=== PATIENT | male | born 1930 | race Caucasian/White ===

== ENCOUNTER → 2016-09-07 | Outpatient (CLI) | payer MEDICARE, OTHER ==
[~2016-09-07] MED LIST: ACET325T33 PO; ADV25050 INHALATION; ALBU8.5H3 INH; ALEN70TA30 PO; ASPI81TA3 PO; ATOR10TA65 PO; BARIUM SULFATE 135 ML (E-Z HD) PO ONE; CITA20TA11 PO; CLOP75TA27 PO; ERGO500014 PO; FER325 PO; FINA5TAB4 PO; FURO20TA3 PO; GABA300C16 PO; HYDR-762 PO; IPRA3AMP HHN; KENC1 TOP; MECL-77 PO; MELO7.5O PO; METO100T13 PO; METR500T PO; MONT10TA24 PO; NIT4 SL; PANT40TA4 PO; RIS1 PO; SPIR25TA PO; TEMA15CA PO; TERA5CAP3 PO; ZOLP5TAB PO
--- NOTE | 2016-09-07 16:58 | RADRPT ---
PROCEDURE: Video-fluoroscopy swallowing study. CLINICAL INDICATION: Dysphagia. TECHNIQUE: Fluoroscopic guided video swallowing study was done in conjunction with the speech ther apist. The study was confined to the oral, pharyngeal, and cervical phases of the swallowing mechani sm. 2.4 minutes of fluoroscopy time was used. COMPARISON: 06/20/2016. FINDINGS: There is silent aspiration with swallowing. IMPRESSION: 1. Silent aspiration during swallowing. 2. Please refer to the speech therapist's recommendations for future feedings. RPTAT: QQ .Reagan Richards MD, MD Date Time Electronically viewed and signed by .Reagan Richards MD, MD on 09/07/2016 16:58 .R/
== END | disposition home or self-care (01) ==
LOC: RAD 11:17
PROVIDERS: ATTEND Family Medicine
DX: R13.10 Dysphagia, unspecified (principal)
CPT/HCPCS: 74230; 92611; G8996; G8997; G8998